=== PATIENT | male | born 1970 | race Caucasian/White ===

== ENCOUNTER 2016-09-09 14:40 | Observation (INO) | payer OTHER ==
[~2016-09-09] VITALS: Ht 182.9 cm; Wt 125.0 kg
--- NOTE | 2016-09-09 16:42 | ED NURSING NOTES ---
Clinical Report - Nurses [facility] [address] [place] [address] 09/09/2016 14:41 Patient: POONAM MARTINEZ TRIAGE Triage time 1451 PM. Acuity: LEVEL 2. Chief Complaint: ABDOMINAL PAIN, NAUSEA, VOMITING and DIARRHEA. Alert. No acute distress. SEPSIS SCREEN: Sepsis Screen. Infection suspected/documented. Temperature greater than 38.3 degrees C (101 degrees F) and heart rate greater than 90. --15:09 Gosia Mims R.N. 14:54 09/09/16. BP: 168/88. HR: 123. RR: 18. O2 saturation: 96% on room air. Temp: 103.1 F (oral). Pain level now: 01/21. --15:09 Gosia Mims R.N. Weight: 120.2 kg stated. Height/Length: 72 inches Per Patient. BMI: 36. --14:55 Gosia Mims R.N. Medications None. --15:06 Gosia Mims R.N. Allergies No Known Drug Allergy. --15:06 Gosia Mims R.N. Medication/allergy information source: the patient. --15:09 Gosia Mims R.N. History Arrived by private vehicle. Historian: patient. Accompanied by family. Primary physician (Dr. Carolina). ( Pt states that on morning at 4 am pain (abdominal) woke him up and vomiting and diarrhea has been constant. Today has vomited approximately 12 times, and diarrhea about once every hour. Abdominal pain states to be "all over" admits to having fevers and chills, vomiting and diarrhea all day. Denies any SOB or chest pain. Pt does state that his stools are "black like"). Onset. (2 days ago). He has had fever, nausea, vomiting, diarrhea and abdominal pain. No constipation. 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 Treatment TIP CEMENTER: Took aspirin. PAST MEDICAL HX: Immunizations: up-to-date. FALL RISK ASSESSMENT: Fall risk assessment completed. No fall risk identified. NUTRITIONAL RISK ASSESSMENT: The nutritional risk assessment revealed no deficiencies. FUNCTIONAL ASSESSMENT: Functional assessment: no impairments noted. LEARNING NEEDS ASSESSMENT: The learning needs assessment revealed no barriers. SKIN INTEGRITY ASSESSMENT: Skin integrity risk assessment completed. No skin integrity risk identified. --15:09 Gosia Mims R.N. PROBLEMS: Soft Tissue Foreign Body. --15:06 Gosia Mims R.N. ADDITIONAL SURGERIES: Tonsillectomy. Vasectomy. --15:06 Gosia Mims R.N. Interventions ID band on patient. --15:09 Gosia Mims R.N. PHYSICAL ASSESSMENT Ambulatory to room. GENERAL / NEURO / PSYCH: Alert. Oriented X 4. Appears in pain. HEENT: Mucous membranes are pink. RESPIRATORY: Respirations not labored. Breath sounds within normal limits. CVS: Capillary refill less than 2 seconds. GI / : The patient has had nausea and diarrhea. Abdomen soft and nontender. Abdominal tenderness. Rebound tenderness. Guarding present. Hyperactive bowel sounds in all quadrants. Bowel sounds within normal limits. SKIN: Skin is warm and dry. Skin is diaphoretic. --15:27 Gosia Mims R.N. NURSING PROGRESS NOTES 15:12 09/09/2016 Site #1 started via IV in the right antecubital space with an 20g angiocath, with aseptic technique and good blood return; one attempt. Blood drawn: rainbow set and cultures x1. Labeled in the presence of the patient and sent to the lab. Saline lock flushed with 10 mL saline. --15:22 Jomar Schaefer R.N. 15:09/09/2016 Started bag #1 1000 mL IV Fluids IV NS (Saline); at 1000 mL/hr over 1 hour(s) via site #1 via IV pump. Allergies verified and confirmed 5 rights. IV patency established. IV site checked: no pain, redness, or swelling. IV flushed thoroughly pre- and post-medication administration. --15:22 Jomar Schaefer R.N. 15:22 09/09/2016 Zofran (Ondansetron HCl) IVP 4 mg given over 1 minute(s) via site #1. Allergies verified and confirmed 5 rights. IV patency established. IV site checked: no pain, redness, or swelling. IV flushed thoroughly pre- and post-medication administration. IVP given by RN. --15:22 Jomar Schaefer R.N. 15:22 09/09/2016 PROTONIX (Pantoprazole Sodium) IVP 40 mg given over 1 minute(s) via site #1. Allergies verified and confirmed 5 rights. IV patency established. IV site checked: no pain, redness, or swelling. IV flushed thoroughly pre- and post-medication administration. IVP given by RN. --15:22 Jomar Schaefer R.N. The initial plan of care for this patient has been created This plan of care was discussed with the patient and family. Monitoring of patient in place. Patient ID band checked for patient name, birthdate and medical record number: patient confirmed. Blood samples drawn from the left antecubital space IV site by nurse per protocol ; labeled in presence of the patient and sent to lab: rainbow set. Patient gowned. Warming measures: blanket applied. Reassurance given. Two patient identifiers checked. Call light placed in reach. Side rails up. Bed placed in lowest position. Brakes of bed on. Care transferred. --15:28 Gosia Mims R.N. Care transferred and report given (Britton Hadley). --15:29 Gosia Mims R.N. 15:42 09/09/2016 Started 2 gm of Ceftriaxone IVPB; at 150 mL/hr over 30 minute(s) via site #1 via IV pump. Allergies verified and confirmed 5 rights. IV patency established. IV site checked: no pain, redness, or swelling. IV flushed thoroughly pre- and post-medication administration. --15:42 Jomar Schaefer R.N. 15:46 09/09/16. BP: 158/89. HR: 110. RR: 17. O2 saturation: 94%. Pain level now 4/10. --15:46 Jomar Schaefer R.N. 15:58 09/09/16. ( h&p given to pt to fill out.). --15:58 Jayne Purdy 16:33 09/09/2016 Ceftriaxone IVPB Discontinued: bag #1 completed. Total amount infused: 50 mL. IV patency established. IV site checked: no pain, redness, or swelling. IV flushed thoroughly. --16:33 Jomar Schaefer R.N. 16:33 09/09/2016 IV Fluids IV NS Discontinued: bag #2 completed. Total amount infused: 1000 mL. IV patency established. IV site checked: no pain, redness, or swelling. IV flushed thoroughly. --16:33 Jomar Schaefer R.N. 16:45 09/09/2016 Dilaudid (HYDROmorphone HCl PF) IVP 0.5 mg given over 1 minute(s) via site #1. Sedative warning given to the patient. IV patency established. IV site checked: no pain, redness, or swelling. IV flushed thoroughly pre- and post-medication administration. IVP given by RN. --16:45 Jomar Schaefer R.N. LEONOR COMA SCORE: Leonor Coma Scale: 15- eyes open spontaneously (4); best verbal response- oriented x 4 (5); best motor response- obeys commands (6). --17:09 Jomar Schaefer R.N. 17:06 09/09/16. BP: 145/76. HR: 105. RR: 15. O2 saturation: 96% on nasal cannula at 2 liters/minute. RN notified. Pain level now 5/10. --17:09 Jomar Schaefer R.N. ( His abdominal pain is better after the pain meds. Pt was placed on 2 liters nc and uses a Cpap at home.). --17:12 Jomar Schaefer R.N. DISPOSITION / DISCHARGE ( Report given to Elise PADILLA. Pt is going to room 210B.). --17:28 Jomar Schaefer R.N. Departure time: 17:40. Condition at departure: improved. ( Pt has improved.). Admitted to Acute Care (17:40). ( Facility tech was called for transport. Pt was placed on 2 liters nc for transport. \\). LEONOR COMA SCORE: Leonor Coma Scale: 15- eyes open spontaneously (4); best verbal response- oriented x 4 (5); best motor response- obeys commands (6). --17:40 Jomar Schaefer R.N. Locked/Released at 09/09/2016 17:41 by Jomar Schaefer R.N.
--- NOTE | 2016-09-09 16:42 | ED CLINICAL REPORT ---
Clinical Report - Physicians/Mid Levels [facility] [address] [place] [address] 09/09/2016 14:41 Patient: POONAM MARTINEZ Time Seen: 14:56. Arrived- By private vehicle. Historian- patient. HISTORY OF PRESENT ILLNESS Chief Complaint: VOMITING and DIARRHEA. This started about 2 days ago and is still present. It was gradual in onset and has been waxing/waning. No recent travel. He has had nausea, diarrhea and moderate, burning, intermittent abdominal pain. The pain is described as generalized. He has had vomiting (may have been bilious). The vomiting has occurred numerous times. No frankly bloody emesis. No black stools, bloody stools, constipation, flank pain or history of possible bad food exposure. No known contact with a sick individual. Has not recently been camping or on antibiotics. The illness is described as moderate. (States he has had "dark stools"). Similar symptoms previously: Recent medical care: Not recently seen/assessed. REVIEW OF SYSTEMS The patient has had fever and muscle aches. He has had mild difficulty with urination (mild dysuria), with burning during urination. No urgency or frequency of urination. No dark urine, headache, dizziness, sore throat or cough. No chest pain, difficulty breathing, excessive urination, skin rash or jaundice. No back pain, fainting episodes or blurred vision. All systems otherwise negative, except as recorded above. PAST HISTORY See nurses notes. PCP: Dr Love. Hiatal hernia. Surgeries: Tonsillectomy. Medications: None. Allergies: No Known Drug Allergy. SOCIAL HISTORY Never smoker. Occasional alcohol use. No drug use. Is a local resident. ADDITIONAL NOTES The nursing notes have been reviewed. PHYSICAL EXAM Vital Signs: 09/09/2016 14:54 BP: 168/88. HR: 123. RR: 18. O2 saturation: 96%. Temp: 103.1 F. Pain level now: 9/10. Appearance: Alert. Oriented X3. Patient in mild distress. Eyes: Pupils equal, round and reactive to light. Eyes normal inspection. No pale conjunctivae or scleral icterus. ENT: Pharynx normal. No pharyngeal erythema or tonsillar exudate. The mucous membranes are not dry. Neck: Normal inspection. Neck supple. CVS: Tachycardia. Heart sounds normal. Pulses normal. Respiratory: No respiratory distress. Breath sounds normal. Abdomen: Soft. Mild tenderness diffusely and in the upper abdomen. No mass. No rebound tenderness, distention or guarding. Back: Normal inspection. Skin: Skin warm and dry. Normal skin color. Normal skin turgor. Extremities: Extremities exhibit normal ROM. No lower extremity edema. Neuro: Oriented X 3. No motor deficit. No sensory deficit. LABS, X-RAYS, AND EKG Laboratory Tests: UA-Culture if indicated: (ED: 09/09/2016 16:40) ( [facility] 09/09/2016 18:42) Final results Test Result Flag Units (Reference) URINE COLOR YELLOW URINE APPEARANCE CLEAR URINE GLUCOSE NEGATIVE (NEGATIVE) URINE BILIRUBIN NEGATIVE (NEGATIVE) URINE KETONE NEGATIVE (NEGATIVE) URINE SPECIFIC GRAVITY <= 1.005 L (1.010-1.030) URINE PH 5.0 (5.0-8.0) URINE PROTEIN NEGATIVE (NEGATIVE) URINE UROBILINOGEN 0.2 EU/dL (0.2-1.0) URINE NITRITE NEGATIVE (NEGATIVE) URINE BLOOD NEGATIVE (NEGATIVE) URINE LEUK ESTERASE NEGATIVE (NEGATIVE) URINE RBC NONE SEEN rbc/hpf (0-1) URINE WBC NONE SEEN wbc/hpf (0-1) URINE EPITHELIAL CELLS NONE SEEN EPI/hpf (0-5) URINE BACTERIA NONE SEEN (NONE SEEN) URINE COMMENT CULT NOT INDICATED URINE CULTURES ARE SET-UP BASED ON THE FOLLOWING CRITERIA:POSITIVE NITRITEPOSITIVE LEUKOCYTE ESTERASEGREATER THAN 10 WHITE BLOOD CELLSMODERATE (2+) OR GREATER BACTERIA CBC w Diff: (ED: 09/09/2016 15:00) ( [facility] 09/09/2016 19:35) Final results Test Result Flag Units (Reference) WHITE BLOOD COUNT 17.4 H K/uL (4.5-11.5) RED BLOOD COUNT 4.93 M/uL (4.50-5.90) HEMOGLOBIN 14.8 gm/dL (13.5-17.5) HEMATOCRIT 43.4 % (41.0-53.0) MEAN CELL VOLUME 88 fL (80-100) MEAN CORPUSCULAR HGB 30 pg (26-34) MEAN CORPUSCULAR HGB CONC 34 g/dL (31-37) RED CELL DISTRIBUTION WIDTH 13.2 % (11.6-14.8) PLATELET COUNT 311 K/uL (150-400) POLY % 67 % (50-75) BAND % 28 H % (0-8) LYMPH 4 L % (25-40) MONO 1 L % (3-14) EOSINOPHIL % 0 % (0-4) BASOPHIL % 0 % (0-2) METAMYELOCYTE % 0 % (0-1) MYELOCYTE 0 % (0-1) OTHER CELL TYPE 0 RBC MORPHOLOGY RBCs NORMAL~~PLTS ADQ PT with INR: (ED: 09/09/2016 15:00) ( [facility] 09/09/2016 15:31) Final results Test Result Flag Units (Reference) INR 1.0 (0.8-1.2) Low Intensity Therapy: INR 1.5-2.0 PT range 18.5-23.1Mod.Intensity Therapy: INR 2.0-3.0 PT range 23.1-31.5High Intensity Therapy: INR 2.5-3.5 PT range 27.4-35.5High Intensity Therapy 2: INR 3.0-4.0 PT range 31.5-39.3 [id number]: (ED: 09/09/2016 15:50) ( [facility] 09/09/2016 18:08) Final results Test Result Flag Units (Reference) CALCULATED A1C 5.9 % (4.5-6.2) The [place] [employer] recommends that aprimary goal of therapy should be a HbA1c of <7% and thatphysicians should reevaluate the treatment regimen inpatients with HbA1c values consistently >8%. ESTIMATED AVERAGE GLUCOSE 123 mg/dL Urine Drug Screen: (ED: 09/09/2016 16:40) ( [facility] 09/09/2016 18:04) Final results Test Result Flag Units (Reference) AMPHETAMINE/METHAMPHETAMINE NEGATIVE (NEGATIVE) BARBITURATE NEGATIVE (NEGATIVE) BENZODIAZEPINE NEGATIVE (NEGATIVE) CANNABINOID NEGATIVE (NEGATIVE) COCAINE NEGATIVE (NEGATIVE) ECSTASY NEGATIVE (NEGATIVE) METHADONE NEGATIVE (NEGATIVE) OPIATE POSITIVE H (NEGATIVE) The urine drug screen is a qualitative screening test fordrug overdose and abuse. All screen results should beconsidered as presumptive.Drugs screened for are as follows:BenzodiazepinesCocaineAmphetamines/MetamphetaminesTHC (Tetrahydrocannabinol)OpiatesBarbituratesEcstasyMethadonePositive results are unconfirmed. For confirmation, notifythe lab for the specimen to be sent to the reference lab.All confirmations must be performed by a differentmethodology.The ingestion of natural herbal and plant productscontaining Ephedra/Ephedra metabolites can produce in urineone or more substances capable of cross reacting withamphetamine/methamphetamine immunoassays. These testsprovide a preliminary result only. A more specificalternative chemical method must be used to obtain aconfirmed analytical result. BNP: (ED: 09/09/2016 15:00) ( [facility] 09/09/2016 15:57) Final results Test Result Flag Units (Reference) B-TYPE NATRIURETIC PEPTIDE < 5.0 L pg/ml (5-100) Lactate, Serum: (ED: 09/09/2016 15:00) ( [facility] 09/09/2016 15:53) Final results Test Result Flag Units (Reference) LACTIC ACID 1.8 mmol/L (0.4-2.0) Lipase: (ED: 09/09/2016 15:00) ( [facility] 09/09/2016 15:52) Final results Test Result Flag Units (Reference) LIPASE 189 U/L (73-393) AMYLASE 62 U/L (25-115) CHEM 13 PANEL: (ED: 09/09/2016 15:00) ( [facility] 09/09/2016 15:53) Final results Test Result Flag Units (Reference) GLUCOSE 126 H mg/dL (70-110) BUN 19 H mg/dL (7-18) CREATININE 1.4 H mg/dL (0.6-1.3) Estimated GFR 58.51 mL/min Estimated GFR- >60 mL/min Note: Persistent reduction over 3 months in eGFR<60 mL/min/1.73 m2 defines CKD. Patients with eGFR values>=60 mL/min/1.73 m2 may also have CKD if evidence ofpersistent proteinuria. Additional information may be foundat www.kidney.org. SODIUM 138 mmol/L (136-145) POTASSIUM 3.3 L mmol/L (3.5-5.1) CHLORIDE 100 mmol/L (98-107) CARBON DIOXIDE 24 mmol/L (21-32) CALCIUM 8.2 L mg/dL (8.5-10.1) TOTAL PROTEIN 7.9 g/dL (6.4-8.2) ALBUMIN 3.8 g/dL (3.3-5.0) BILIRUBIN, TOTAL 0.5 mg/dL (0.0-1.0) ALKALINE PHOSPHATASE 83 U/L (46-116) AST (SGOT) 57 H U/L (15-37) ALT (SGPT) 121 H U/L (12-78) MAGNESIUM 1.8 mg/dL (1.8-2.4) CPK 126 U/L (24-260) TROPONIN I <0.05 L ng/mL (0.00-1.5) TROPONIN REFERENCE RANGE:<0.1 NEGATIVE0.1-1.5 INDETERMINANT>1.5 POSITIVE . Microbiology: Blood culture x2 and stool culture ordered. Pulse Oximetry: 09/09/2016 14:54 O2 saturation: 96%. (FIO2 - room air). Interpretation: normal. PROGRESS AND PROCEDURES Course of Care: Normal Saline 2 liters IVPB given. Zofran 4 mg IVP given. Protonix 40 mg IVP given. Ceftriaxone 2 gm - after blood cultures IVP given. Dilaudid 0.5 mg IVP given. SIRS Criteria: +WBC, +HR, + temp; suspect GI gastroenteritis, lactate 1.8; ST. CROIX 2 score (with estimated ABG numbers): 9; qSOFA score: 0. Discussed case with health care provider (Lori). Refers case to other health care provider. Discussed case with hospitalist, (Kiana call placed 16:29 call returned 16:36). Reviewed test results. Agreed upon treatment plan and decision to admit. Health care provider will see patient in ED. Patient/family counseled. Old ED records reviewed. Disposition: Observation in Acute Care. Condition: stable and improved. CLINICAL IMPRESSION Intractable vomiting with nausea and dehydration. Diarrhea. Acute generalized abdominal pain of undetermined cause. Abnormal liver function test. Hypokalemia. INSTRUCTIONS Follow-up: Screening today revealed the patient's blood pressure to be in the hypertensive range. The patient should follow up with a primary care provider for blood pressure management. The patient was admitted and blood pressure will be managed during the admission. (Electronically signed by Ish Hidalgo DO 09/09/2016 20:43)
--- NOTE | 2016-09-09 16:42 | ED ORDER SUMMARY ---
..... Patient: POONAM MARTINEZ OrderSheet [facility] VisitID: [id number] [place] [address] 46y, M Registration Date/Time: 09/09/2016 ORDER SHEET Weight: 120.2 kg (stated) Allergies: No Known Drug Allergy GENERAL ORDERS: UA-Culture if indicated [facility] (15:00 [facility] (Ack 15:01 TBergley) (15:25 TLewis R.N.) Amylase Urgent (15:09/09/2016 [facility] (Ack 15:01 TBergley) (15:10 EHassan R.N.) Lipase Urgent (15:09/09/2016 [facility]) (Ack 15:01 TBergley) (15:10 EHassan R.N.) PT with INR Urgent (15:09/09/2016 PHwason ) (Ack 15:01 TBergley) (15:10 EHassan R.N.) Cardiac Panel Stat (15:00 09/09/2016 [facility] (Ack 15:01 TBergley) (15:10 EHassan R.N.) BNP Urgent (15:09/09/2016 PHwachinson DO) (Ack 15:01 TBergley) (15:10 EHassan R.N.) Urine Drug Screen Urgent (15:09/09/2016 [facility]) (Ack 15:01 TBergley) (15:25 TLewis R.N.) Lactate, Serum Urgent (15:09/09/2016 PHwachinson DO) (Ack 15:01 TBergley) (15:10 EHassan R.N.) NPO (15:09/09/2016 PHwachinson DO) (Ack 15:01 TBergley) (15:09 TBergley) Blood Culture (No) (N/A) Urgent (15:08 09/09/2016 PHutchinson DO) (Ack 15:08 TBergley) (15:10 EHassan R.N.) CT Abd/Pel w Cont (No) (N/A) Urgent (15:15 09/09/2016 [facility]) (15:25 TLewis R.N.) Call (Place call to): (Dr Bruno) (16:30 09/09/2016 [facility]) (16:35 TBergley) Culture, Stool Urgent (16:40 09/09/2016 [facility]) (Ack 16:40 TBergley) (16:43 TLewis R.N.) MEDICATION ORDERS: IV FLUIDS: IV NS : initial bolus 1000 mL (1000 mL/hr), then 1000 mL/hr for X1 (NOW) (14:59 09/09/2016 [facility]) (15:22 TLewis R.N.) Zofran IV 4 mg (NOW) (14:59 09/09/2016 [facility]) (15:22 TLewis R.N.) Protonix IVP 40mg 40 mg (Mix in NS 10ml over 2min) (15:00 09/09/2016 [facility]) (15:22 TLewis R.N.) Ceftriaxone IV 2 gm/50mL (after blood cultures and urine obtained) (15:24 09/09/2016 [facility]) (15:42 TLewis R.N.) Dilaudid IV 0.5 mg (HIGH ALERT MEDICATION, NOW) (16:43 09/09/2016 [facility]) (16:45 TLewis R.N.) ORDER SHEET NOTES: [Electronically signed by Jomar Schaefer R.N. (17:41 09/09/2016)] [Electronically signed by Ish Hidalgo DO (20:43 09/09/2016)] [Electronically locked/signed by Jomar Schaefer R.N. (17:41 09/09/2016)]
--- NOTE | 2016-09-09 16:42 | ED ORDER SUMMARY ---
..... Patient: POONAM MARTINEZ OrderSheet [facility] VisitID: [id number] [place] [address] 46y, M Registration Date/Time: 09/09/2016 ORDER SHEET Weight: 120.2 kg (stated) Allergies: No Known Drug Allergy GENERAL ORDERS: UA-Culture if indicated Urgent (15:00 [facility]/09/2016 [facility] (Ack 15:01 TBergley) (15:25 TLewis R.N.) Amylase Urgent (15:09/09/2016 [facility]) (Ack 15:01 TBergley) (15:10 EHassan R.N.) Lipase Urgent (15:09/09/2016 [facility]) (Ack 15:01 TBergley) (15:10 EHassan R.N.) PT with INR Urgent (15:09/09/2016 PHnyson ) (Ack 15:01 TBergley) (15:10 EHassan R.N.) Cardiac Panel Stat (15:00 09/09/2016 [facility] (Ack 15:01 TBergley) (15:10 EHassan R.N.) BNP Urgent (15:09/09/2016 PHnychinson DO) (Ack 15:01 TBergley) (15:10 EHassan R.N.) Urine Drug Screen Urgent (15:09/09/2016 [facility]) (Ack 15:01 TBergley) (15:25 TLewis R.N.) Lactate, Serum Urgent (15:09/09/2016 PHnychinson DO) (Ack 15:01 TBergley) (15:10 EHassan R.N.) NPO (15:09/09/2016 PHnychinson DO) (Ack 15:01 TBergley) (15:09 TBergley) Blood Culture (No) (N/A) Urgent (15:08 09/09/2016 PHutchinson DO) (Ack 15:08 TBergley) (15:10 EHassan R.N.) CT Abd/Pel w Cont (No) (N/A) Urgent (15:15 09/09/2016 [facility]) (15:25 TLewis R.N.) Call (Place call to): (Dr Bruno) (16:30 09/09/2016 [facility]) (16:35 TBergley) Culture, Stool Urgent (16:40 09/09/2016 [facility]) (Ack 16:40 TBergley) (16:43 TLewis R.N.) MEDICATION ORDERS: IV FLUIDS: IV NS : initial bolus 1000 mL (1000 mL/hr), then 1000 mL/hr for X1 (NOW) (14:59 09/09/2016 [facility]) (15:22 TLewis R.N.) Zofran IV 4 mg (NOW) (14:59 09/09/2016 [facility]) (15:22 TLewis R.N.) Protonix IVP 40mg 40 mg (Mix in NS 10ml over 2min) (15:00 09/09/2016 [facility]) (15:22 TLewis R.N.) Ceftriaxone IV 2 gm/50mL (after blood cultures and urine obtained) (15:24 09/09/2016 [facility]) (15:42 TLewis R.N.) Dilaudid IV 0.5 mg (HIGH ALERT MEDICATION, NOW) (16:43 09/09/2016 [facility]) (16:45 TLewis R.N.) ORDER SHEET NOTES: [Electronically signed by Jomar Schaefer R.N. (17:41 09/09/2016)] [Electronically signed by Ish Hidalgo DO (20:43 09/09/2016)] [Electronically locked/signed by Jomar Schaefer R.N. (17:41 09/09/2016)]
--- NOTE | 2016-09-09 16:57 | DIAGNOSTIC IMAGING REPORT ---
PROCEDURE: CT ABD/PELVIS WITH CONTRAST INDICATION: Abdominal pain. Nausea vomiting. Diarrhea. Elevated white blood count (17,400). TECHNIQUE: 145 ml of Isovue 300 were injected intravenously and axial images were obtained of the entire abdomen and pelvis with sagittal and coronal reformations. COMPARISON: Compared CT abdomen pelvis on 06/09/2014. FINDINGS: ABDOMEN: Moderate increased fluid throughout the small bowel and colon. Appendix is normal. Mild pattern negative marked fatty infiltration of the liver. Spleen, pancreas, kidneys, and aorta are normal. There is dystrophic calcification of the right adrenal gland (stable). Mild to moderate degenerative changes of the lumbar spine. PELVIS: Pelvic structures are normal. No evidence of free fluid. IMPRESSION: 1. Moderate increased fluid throughout the small bowel and colon compatible with enterocolitis. 2. Mild hepatomegaly with marked fatty infiltration of the liver. 3. Otherwise negative CT abdomen and pelvis. 4. Findings discussed with Dr. Hidalgo. All CT scans at this facility use dose modulation, iterative reconstruction, and/or weight-based dosing when appropriate to reduce radiation dose to as low as reasonably achievable.
--- NOTE | 2016-09-09 17:02 | Progress Note ---
Subjective General Admission History and Physical Examination Patient Name: Keo Phelan Admission Date: September 09, 2016 Primary Care Provider: Xu Love M.D. Attending Physician: Rebel Bruno M.D. Admitting Physician: Rebel Bruno M.D. Code Status: FULL CODE Room: 210-B Patient status: Observation SUBJECTIVE Historian: Patient Reliability: Good Chief Complaint: Nausea, vomiting, abdominal pain, and diarrhea History of Present Illness: The patient is a 46-year-old white male with a significant past medical history hypertension and obesity who presented to [facility] emergency department on the day of admission secondary to complaints of nausea, vomiting, abdominal pain and diarrhea. The symptoms have been present over the 2 days prior to admission. [facility] ER evaluation was consistent with probable gastroenteritis with intractable nausea and vomiting, hypokalemia, dehydration, hyperglycemia, and hypertension. Secondary to the above, the patient was admitted by Rebel Bruno M.D. for further evaluation and treatment. The history of present was began 2 days prior to admission when the patient developed nausea with recurrent emesis. There was no coffee-ground material or blood noted in emesis. Patient's states he vomited approximately 12 times today. Possibly bilious material. The patient also had diarrhea which not contain blood or that have been dark.. The patient's symptoms were associated with temperature elevation to 103F and chills. The patient's abdominal pain has been diffuse. Secondary to intractable nausea and vomiting, abdominal pain, fever or chills and generalized malaise the patient presented to [facility] emergency department for further evaluation and treatment. [facility] ER evaluation was consistent with gastroenteritis with associated intractable nausea and vomiting, diarrhea, dehydration, hypokalemia. Secondary to the above the patient was admitted for further evaluation and treatment. PAST MEDICAL HISTORY Illnesses: 1. Hypertension 2. Obesity Allergies: 1. No Known Drug Allergies Medications: 1. High blood pressure medication-type unknown Surgery: 1. Tonsillectomy 2. Vasectomy Injuries: 1. No significant Hospitalizations: 1. None FAMILY HISTORY Parents: 1. Father, Glen, living, 69, hypertension, diabetes mellitus, 2. Mother, Jennifer, living, 67, healthy Siblings: 1. Male, Guicho, living, 49, hypertension, diabetes mellitus, heart disease-type unknown Children: 1. Female, Cindy, living, 17, healthy 2. Female, Melissa, living, 14, healthy Other significant family history: None SOCIAL HISTORY 1. Marital Status: 2. Synagogue: [employer]-Orthodoxy 3. Education: High school and vocational education 4. 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 Tobacco: None 2. Drugs: None 3. Alcohol: One ounce per week 4. Caffeine: One Soft Drink per Day HEALTH SUPERVISION Item/Test 1. Colonoscopy: 2016 IMMUNIZATIONS: 1. Pneumococcal: No previous 2. Influenza: No previous 3. Tetanus: 2013 ADVANCED DIRECTIVES: 1. Living well: Yes 2. POLST: No 3. Code Status: FULL CODE 4. Durable Power Assistive Technology Specialist Health care: Yes 5. Donor card: Yes REVIEW OF SYSTEMS Remarkable for those things stated in the history of present illness and past medical history. Seventeen point review of system completed with the following notable findings: None Physical Exam Vital Signs / I&Os Blood pressure: 168/88 mmHg Heart rate: 123/minute Respiratory rate: 18/minute Temperature: 103.1 Fahrenheit orally Pulse oximetry: 96% room air General Appearance Alert, Oriented X3, Cooperative, No acute distress HEENT Atraumatic, PERRLA, EOMI, Moist mucous membranes Lungs Clear to auscultation, Normal air movement Neck Supple, No JVD, 2+ carotid pulse wo bruit Cardiovascular Regular rate and rhythm, Normal S1 and S2, No murmurs, gallops, rubs Abdomen Hypoactive BS, diffuse mild tenderness Extremities No cyanosis, No clubbing, No edema, Normal pulses Neurological Cranial nerves intact, Strength 5/5 x4 ext's, No lateralizing signs Psych/Mental Status Mental status normal, Mood normal LAB Results Laboratory Tests 09/09 09/09 09/09 09/09 1500 1500 1500 1500 Chemistry Plasma Sodium (136 - 145 mmol/L) 138 Plasma Potassium (3.5 - 5.1 mmol/L) 3.3 Plasma Chloride (98 - 107 mmol/L) 100 CO2 (Enzymatic) (21 - 32 mmol/L) 24 BUN (7 - 18 mg/dL) 19 Creatinine (0.6 - 1.3 mg/dL) 1.4 Est GFR ( Amer) (mL/min) >60 Est GFR (Non-Af Amer) (mL/min) 58.51 Glucose (70 - 110 mg/dL) 126 Lactic Acid (0.4 - 2.0 mmol/L) 1.8 Plasma Calcium (8.5 - 10.1 mg/dL) 8.2 Plasma Magnesium (1.8 - 2.4 mg/dL) 1.8 Total Bilirubin (0.0 - 1.0 mg/dL) 0.5 AST (15 - 37 U/L) 57 ALT (12 - 78 U/L) 121 Alkaline Phosphatase (46 - 116 U/L) 83 Creatine Kinase (24 - 260 U/L) 126 Troponin (0.00 - 1.5 ng/mL) <0.05 B-Natriuretic Peptide (5 - 100 pg/ml) < 5.0 Total Protein (6.4 - 8.2 g/dL) 7.9 Albumin (3.3 - 5.0 g/dL) 3.8 Amylase (25 - 115 U/L) 62 Lipase (73 - 393 U/L) 189 Coagulation INR (0.8 - 1.2) 1.0 Hematology WBC (4.5 - 11.5 K/uL) 17.4 RBC (4.50 - 5.90 M/uL) 4.93 Hgb (13.5 - 17.5 gm/dL) 14.8 Hct (41.0 - 53.0 %) 43.4 MCV (80 - 100 fL) 88 MCH (26 - 34 pg) 30 RDW (11.6 - 14.8 %) 13.2 Neut % (Auto) (50 - 75 %) Pending Lymph % (Auto) (25 - 40 %) Pending Sierra % (Auto) (3 - 14 %) Pending Band Neutrophils % (0 - 8 %) Pending Plt Count, EDTA (150 - 400 K/uL) 311 PUBS MCHC (31 - 37 g/dL) 34 Microbiology Date/Time Procedure - Status Source Growth 09/09 1640 Escherichia coli Shiga Toxins EIA - ORD STOOL 09/09 1640 Campylobacter Culture - ORD STOOL 09/09 1640 Salmonella/Shigella Culture - ORD STOOL 09/09 1520 Blood Culture - RECD BLOOD 09/09 1500 Blood Culture - RECD BLOOD Imaging Abdomen/Pelvis CT Scan IMPRESSION: 1. Moderate increased fluid throughout the small bowel and colon compatible with enterocolitis. 2. Mild hepatomegaly with marked fatty infiltration of the liver. 3. Otherwise negative CT abdomen and pelvis. 4. Findings discussed with Dr. Hidalgo. Dictated by: STELLA MUSA MD D: KEVIN;09/09/[address] scan independently reviewed at time of admission. Assessment and Plan Problem List 1. Gastroenteritis Status Acute Onset Date Unknown Plan -Patient presents with findings suggestive of viral gastroenteritis -Patient with intractable nausea and vomiting -Admitted with IV fluid therapy, antiemetics -Check stool for fecal leukocyte, culture and sensitivity -Check procalcitonin -Monitor 2. Hypokalemia Status Acute Onset Date Unknown Plan -Patient presents with findings of mild hypokalemia -Potassium 3.3 -IV supplementation, KCl 40 meq IV -Monitor 3. Dehydration Status Acute Onset Date Unknown Plan -Patient shows findings of mild dehydration -Elevation of BUN/creatinine -IV fluid therapy -Monitor 4. Hyperglycemia Status Acute Onset Date Unknown Plan -Patient with mild hyperglycemia -Monitor -Check hemoglobin A1c -Insulin sliding scale as necessary 5. Hypertension Status Chronic Onset Date Unknown Plan -Patient with history of hypertension -Blood pressure mildly elevated on admission, BP 168/88 mmHg -Patient unaware of current medical regimen -Contact [facility] for medical regimen -Low-salt diet when taking well orally -Monitor 6. Elevated liver function tests Status Acute Onset Date Unknown Plan -Patient with mild elevation of LFTs -Recheck in a.m. -Further evaluation based on follow-up studies Current status: Fair, unstable Anticipated discharge date: Anticipated discharge in 2 days Anticipated discharge placement: Home Patient care time: Time spent in chart review, patient interview, physical exam, CPOE, and care documentation: 70 minutes Visit to patient today: 1 Complexity of care: High Initial patient evaluation: Emergency department DVT prophylaxis: Lovenox 40 mg subcutaneous daily GI prophylaxis: Protonix 40 mg IV daily E&M Codes Admission: Obsv-Comp/High/[id number]
--- NOTE | 2016-09-09 17:02 | Progress Note ---
Subjective General Admission History and Physical Examination Patient Name: Keo Phelan Admission Date: September 09, 2016 Primary Care Provider: Xu Love M.D. Attending Physician: Rebel Bruno M.D. Admitting Physician: Rebel Bruno M.D. Code Status: FULL CODE Room: 210-B Patient status: Observation SUBJECTIVE Historian: Patient Reliability: Good Chief Complaint: Nausea, vomiting, abdominal pain, and diarrhea History of Present Illness: The patient is a 46-year-old white male with a significant past medical history hypertension and obesity who presented to [facility] emergency department on the day of admission secondary to complaints of nausea, vomiting, abdominal pain and diarrhea. The symptoms have been present over the 2 days prior to admission. [facility] ER evaluation was consistent with probable gastroenteritis with intractable nausea and vomiting, hypokalemia, dehydration, hyperglycemia, and hypertension. Secondary to the above, the patient was admitted by Rebel Bruno M.D. for further evaluation and treatment. The history of present was began 2 days prior to admission when the patient developed nausea with recurrent emesis. There was no coffee-ground material or blood noted in emesis. Patient's states he vomited approximately 12 times today. Possibly bilious material. The patient also had diarrhea which not contain blood or that have been dark.. The patient's symptoms were associated with temperature elevation to 103F and chills. The patient's abdominal pain has been diffuse. Secondary to intractable nausea and vomiting, abdominal pain, fever or chills and generalized malaise the patient presented to [facility] emergency department for further evaluation and treatment. [facility] ER evaluation was consistent with gastroenteritis with associated intractable nausea and vomiting, diarrhea, dehydration, hypokalemia. Secondary to the above the patient was admitted for further evaluation and treatment. PAST MEDICAL HISTORY Illnesses: 1. Hypertension 2. Obesity Allergies: 1. No Known Drug Allergies Medications: 1. High blood pressure medication-type unknown Surgery: 1. Tonsillectomy 2. Vasectomy Injuries: 1. No significant Hospitalizations: 1. None FAMILY HISTORY Parents: 1. Father, Glen, living, 69, hypertension, diabetes mellitus, 2. Mother, Jennifer, living, 67, healthy Siblings: 1. Male, Guicho, living, 49, hypertension, diabetes mellitus, heart disease-type unknown Children: 1. Female, Cindy, living, 17, healthy 2. Female, Melissa, living, 14, healthy Other significant family history: None SOCIAL HISTORY 1. Marital Status: 2. Jainism: Confucianism-Mormonism 3. Education: High school and vocational education 4. 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 Tobacco: None 2. Drugs: None 3. Alcohol: One ounce per week 4. Caffeine: One Soft Drink per Day HEALTH SUPERVISION Item/Test 1. Colonoscopy: 2016 IMMUNIZATIONS: 1. Pneumococcal: No previous 2. Influenza: No previous 3. Tetanus: 2013 ADVANCED DIRECTIVES: 1. Living well: Yes 2. POLST: No 3. Code Status: FULL CODE 4. Durable Power Prefinish Operator Health care: Yes 5. Donor card: Yes REVIEW OF SYSTEMS Remarkable for those things stated in the history of present illness and past medical history. Seventeen point review of system completed with the following notable findings: None Physical Exam Vital Signs / I&Os Blood pressure: 168/88 mmHg Heart rate: 123/minute Respiratory rate: 18/minute Temperature: 103.1 Fahrenheit orally Pulse oximetry: 96% room air General Appearance Alert, Oriented X3, Cooperative, No acute distress HEENT Atraumatic, PERRLA, EOMI, Moist mucous membranes Lungs Clear to auscultation, Normal air movement Neck Supple, No JVD, 2+ carotid pulse wo bruit Cardiovascular Regular rate and rhythm, Normal S1 and S2, No murmurs, gallops, rubs Abdomen Hypoactive BS, diffuse mild tenderness Extremities No cyanosis, No clubbing, No edema, Normal pulses Neurological Cranial nerves intact, Strength 5/5 x4 ext's, No lateralizing signs Psych/Mental Status Mental status normal, Mood normal LAB Results Laboratory Tests 09/09 09/09 09/09 09/09 1500 1500 1500 1500 Chemistry Plasma Sodium (136 - 145 mmol/L) 138 Plasma Potassium (3.5 - 5.1 mmol/L) 3.3 Plasma Chloride (98 - 107 mmol/L) 100 CO2 (Enzymatic) (21 - 32 mmol/L) 24 BUN (7 - 18 mg/dL) 19 Creatinine (0.6 - 1.3 mg/dL) 1.4 Est GFR ( Amer) (mL/min) >60 Est GFR (Non-Af Amer) (mL/min) 58.51 Glucose (70 - 110 mg/dL) 126 Lactic Acid (0.4 - 2.0 mmol/L) 1.8 Plasma Calcium (8.5 - 10.1 mg/dL) 8.2 Plasma Magnesium (1.8 - 2.4 mg/dL) 1.8 Total Bilirubin (0.0 - 1.0 mg/dL) 0.5 AST (15 - 37 U/L) 57 ALT (12 - 78 U/L) 121 Alkaline Phosphatase (46 - 116 U/L) 83 Creatine Kinase (24 - 260 U/L) 126 Troponin (0.00 - 1.5 ng/mL) <0.05 B-Natriuretic Peptide (5 - 100 pg/ml) < 5.0 Total Protein (6.4 - 8.2 g/dL) 7.9 Albumin (3.3 - 5.0 g/dL) 3.8 Amylase (25 - 115 U/L) 62 Lipase (73 - 393 U/L) 189 Coagulation INR (0.8 - 1.2) 1.0 Hematology WBC (4.5 - 11.5 K/uL) 17.4 RBC (4.50 - 5.90 M/uL) 4.93 Hgb (13.5 - 17.5 gm/dL) 14.8 Hct (41.0 - 53.0 %) 43.4 MCV (80 - 100 fL) 88 MCH (26 - 34 pg) 30 RDW (11.6 - 14.8 %) 13.2 Neut % (Auto) (50 - 75 %) Pending Lymph % (Auto) (25 - 40 %) Pending Maverick % (Auto) (3 - 14 %) Pending Band Neutrophils % (0 - 8 %) Pending Plt Count, EDTA (150 - 400 K/uL) 311 PUBS MCHC (31 - 37 g/dL) 34 Microbiology Date/Time Procedure - Status Source Growth 09/09 1640 Escherichia coli Shiga Toxins EIA - ORD STOOL 09/09 1640 Campylobacter Culture - ORD STOOL 09/09 1640 Salmonella/Shigella Culture - ORD STOOL 09/09 1520 Blood Culture - RECD BLOOD 09/09 1500 Blood Culture - RECD BLOOD Imaging Abdomen/Pelvis CT Scan IMPRESSION: 1. Moderate increased fluid throughout the small bowel and colon compatible with enterocolitis. 2. Mild hepatomegaly with marked fatty infiltration of the liver. 3. Otherwise negative CT abdomen and pelvis. 4. Findings discussed with Dr. Hidalgo. Dictated by: STELLA MUSA MD D: KEVIN;09/09/[address] scan independently reviewed at time of admission. Assessment and Plan Problem List 1. Gastroenteritis Status Acute Onset Date Unknown Plan -Patient presents with findings suggestive of viral gastroenteritis -Patient with intractable nausea and vomiting -Admitted with IV fluid therapy, antiemetics -Check stool for fecal leukocyte, culture and sensitivity -Check procalcitonin -Monitor 2. Hypokalemia Status Acute Onset Date Unknown Plan -Patient presents with findings of mild hypokalemia -Potassium 3.3 -IV supplementation, KCl 40 meq IV -Monitor 3. Dehydration Status Acute Onset Date Unknown Plan -Patient shows findings of mild dehydration -Elevation of BUN/creatinine -IV fluid therapy -Monitor 4. Hyperglycemia Status Acute Onset Date Unknown Plan -Patient with mild hyperglycemia -Monitor -Check hemoglobin A1c -Insulin sliding scale as necessary 5. Hypertension Status Chronic Onset Date Unknown Plan -Patient with history of hypertension -Blood pressure mildly elevated on admission, BP 168/88 mmHg -Patient unaware of current medical regimen -Contact [facility] for medical regimen -Low-salt diet when taking well orally -Monitor 6. Elevated liver function tests Status Acute Onset Date Unknown Plan -Patient with mild elevation of LFTs -Recheck in a.m. -Further evaluation based on follow-up studies Current status: Fair, unstable Anticipated discharge date: Anticipated discharge in 2 days Anticipated discharge placement: Home Patient care time: Time spent in chart review, patient interview, physical exam, CPOE, and care documentation: 70 minutes Visit to patient today: 1 Complexity of care: High Initial patient evaluation: Emergency department DVT prophylaxis: Lovenox 40 mg subcutaneous daily GI prophylaxis: Protonix 40 mg IV daily E&M Codes Admission: Obsv-Comp/High/[id number]
[2016-09-09 17:48] VITALS: BP 147/84
--- NOTE | 2016-09-09 20:43 | ED MAR SUMMARY ---
..... Medication Administration Record [facility] [address] [place] [address] Patient: POONAM MARTINEZ Visit ID: [id number] 46y, M Weight: 120.2 kg Height/Length: 72 in BMI: 36 ALLERGIES: No Known Drug Allergy Start 15:22 09/09/2016 Jomar Schaefer R.N., Stop 16:33 09/09/2016 Jomar Schaefer R.N. Medication Administered: IV NS (SALINE), Dose: IV Fluids over 1 hour(s), Rate: 1000 mL/hr, Dispensed: 1000 mL bag, Site: #1 right AC. Medication Ordered: IV NS : initial bolus 1000 mL (1000 mL/hr), then 1000 mL/hr for X1 (NOW). Given 15:09/09/2016 Jomar Schaefer R.N. Medication Administered: ZOFRAN [IVP] (ONDANSETRON HCL), Dose: 4 mg IVP over 1 minute(s), Site: #1 right AC. Medication Ordered: Zofran IV 4 mg (NOW). Given 15:09/09/2016 Jomar Schaefer R.N. Medication Administered: PROTONIX [IVP] (PANTOPRAZOLE SODIUM), Dose: 40 mg IVP over 1 minute(s), Site: #1 right AC. Medication Ordered: Protonix IVP 40mg 40 mg (Mix in NS 10ml over 2min). Start 15:42 09/09/2016 Jomar Schaefer R.N., Stop 16:33 09/09/2016 Jomar Schaefer R.N. Medication Administered: CEFTRIAXONE [IVPB], Dose: 2 gm IVPB over 30 minute(s), Rate: 150 mL/hr, Site: #1 right AC. Medication Ordered: Ceftriaxone IV 2 gm/50mL (after blood cultures and urine obtained). Given 16:45 09/09/2016 Jomar Schaefer R.N. Medication Administered: DILAUDID [IVP] (HYDROMORPHONE HCL PF), Dose: 0.5 mg IVP over 1 minute(s), Site: #1 right AC. Medication Ordered: Dilaudid IV 0.5 mg (HIGH ALERT MEDICATION, NOW).
--- NOTE | 2016-09-09 20:43 | ED DISCHARGE INSTRUCTIONS ---
Patient: POONAM MARTINEZ General Instructions [facility] VisitID: [id number] [place] [address] 46y, M Registration Date/Time: 09/09/2016 Intractable vomiting with nausea and dehydration. Diarrhea. Acute generalized abdominal pain of undetermined cause. Abnormal liver function test. Hypokalemia. INSTRUCTIONS Follow-up: Screening today revealed the patient's blood pressure to be in the hypertensive range. The patient should follow up with a primary care provider for blood pressure management. The patient was admitted and blood pressure will be managed during the admission. (Electronically signed by Ish Hidalgo DO 09/09/2016 20:43)
--- NOTE | 2016-09-09 20:43 | ED DISCHARGE INSTRUCTIONS ---
Patient: POONAM MARTINEZ General Instructions [facility] VisitID: [id number] [place] [address] 46y, M Registration Date/Time: 09/09/2016 Intractable vomiting with nausea and dehydration. Diarrhea. Acute generalized abdominal pain of undetermined cause. Abnormal liver function test. Hypokalemia. INSTRUCTIONS Follow-up: Screening today revealed the patient's blood pressure to be in the hypertensive range. The patient should follow up with a primary care provider for blood pressure management. The patient was admitted and blood pressure will be managed during the admission. (Electronically signed by Ish Hidalgo DO 09/09/2016 20:43)
--- NOTE | 2016-09-09 20:43 | ED MED RECONCILIATION SUMMARY ---
Patient: POONAM MARTINEZ Medication Reconciliation Report [facility] VisitID: [id number] [address] [place] [address] 46y, M Registration Date/Time: 09/09/2016 Weight: 120.2 kg Height/Length: 72 in. BMI: 36.0 ALLERGIES: No Known Drug Allergy The patient's Home Medications are listed below: NONE. The source(s) of the original Home Medication information: patient The following Medications were given to the patient in the Emergency Department: IV NS IV Fluids bolus 0, then 1000 mL/hr, administered: 09/09/2016 3:22:00 PM Zofran [IVP] IVP 4 mg, administered: 09/09/2016 3:22:00 PM PROTONIX [IVP] IVP 40 mg, administered: 09/09/2016 3:22:00 PM Ceftriaxone [IVPB] IVPB bolus 0, then 2 gm 150 mL/hr, administered: 09/09/2016 3:42:00 PM Dilaudid [IVP] IVP 0.5 mg, administered: 09/09/2016 4:45:00 PM The following Medications were prescribed to the patient: None.
--- NOTE | 2016-09-09 20:43 | ED MED RECONCILIATION SUMMARY ---
Patient: POONAM MARTINEZ Medication Reconciliation Report [facility] VisitID: [id number] [address] [place] [address] 46y, M Registration Date/Time: 09/09/2016 Weight: 120.2 kg Height/Length: 72 in. BMI: 36.0 ALLERGIES: No Known Drug Allergy The patient's Home Medications are listed below: NONE. The source(s) of the original Home Medication information: patient The following Medications were given to the patient in the Emergency Department: IV NS IV Fluids bolus 0, then 1000 mL/hr, administered: 09/09/2016 3:22:00 PM Zofran [IVP] IVP 4 mg, administered: 09/09/2016 3:22:00 PM PROTONIX [IVP] IVP 40 mg, administered: 09/09/2016 3:22:00 PM Ceftriaxone [IVPB] IVPB bolus 0, then 2 gm 150 mL/hr, administered: 09/09/2016 3:42:00 PM Dilaudid [IVP] IVP 0.5 mg, administered: 09/09/2016 4:45:00 PM The following Medications were prescribed to the patient: None.
--- NOTE | 2016-09-09 20:43 | ED MAR SUMMARY ---
..... Medication Administration Record [facility] [address] [place] [address] Patient: POONAM MARTINEZ Visit ID: [id number] 46y, M Weight: 120.2 kg Height/Length: 72 in BMI: 36 ALLERGIES: No Known Drug Allergy Start 15:22 09/09/2016 Jomar Schaefer R.N., Stop 16:33 09/09/2016 Jomar Schaefer R.N. Medication Administered: IV NS (SALINE), Dose: IV Fluids over 1 hour(s), Rate: 1000 mL/hr, Dispensed: 1000 mL bag, Site: #1 right AC. Medication Ordered: IV NS : initial bolus 1000 mL (1000 mL/hr), then 1000 mL/hr for X1 (NOW). Given 15:09/09/2016 Jomar Schaefer R.N. Medication Administered: ZOFRAN [IVP] (ONDANSETRON HCL), Dose: 4 mg IVP over 1 minute(s), Site: #1 right AC. Medication Ordered: Zofran IV 4 mg (NOW). Given 15:09/09/2016 Jomar Schaefer R.N. Medication Administered: PROTONIX [IVP] (PANTOPRAZOLE SODIUM), Dose: 40 mg IVP over 1 minute(s), Site: #1 right AC. Medication Ordered: Protonix IVP 40mg 40 mg (Mix in NS 10ml over 2min). Start 15:42 09/09/2016 Jomar Schaefer R.N., Stop 16:33 09/09/2016 Jomar Schaefer R.N. Medication Administered: CEFTRIAXONE [IVPB], Dose: 2 gm IVPB over 30 minute(s), Rate: 150 mL/hr, Site: #1 right AC. Medication Ordered: Ceftriaxone IV 2 gm/50mL (after blood cultures and urine obtained). Given 16:45 09/09/2016 Jomar Schaefer R.N. Medication Administered: DILAUDID [IVP] (HYDROMORPHONE HCL PF), Dose: 0.5 mg IVP over 1 minute(s), Site: #1 right AC. Medication Ordered: Dilaudid IV 0.5 mg (HIGH ALERT MEDICATION, NOW).
[2016-09-09 22:21] VITALS: BP 146/76
[2016-09-10 02:09] VITALS: BP 138/67
[2016-09-10 06:14] VITALS: BP 151/77
--- NOTE | 2016-09-10 07:14 | Progress Note ---
Subjective General Note Date: September 10, 2016 Admission Date: September 09, 2016 Hospital Day: 2 PCP: Dr. Love Status: Acute care Observation Advanced Directive: FULL CODE Room: 210 46-year-old white male with a significant past medical history hypertension and obesity who presented to [facility] emergency department on the day of admission secondary to complaints of nausea, vomiting, abdominal pain and diarrhea. The symptoms have been present over the 2 days prior to admission. [facility] ER evaluation was consistent with probable gastroenteritis with intractable nausea and vomiting, hypokalemia, dehydration, hyperglycemia, and hypertension. Secondary to the above, the patient was admitted by Rebel Bruno M.D. for further evaluation and treatment. Subjective: Patient seen at bedside. Patient reporting slight improvement. Patient has had no vomiting. Patient reports of diarrhea. Patient states that these not yet eating. This hoping to advance to a clear liquid diet. Patient has generalized abdominal pain. Pain has generalized abdominal pain. Patient needs Normalize condition Constitutional Weakness. Respiratory Denies: SOB w/exertion, Wheezing. Cardiovascular Denies: Light-headedness. Gastrointestinal Vomiting, Abdominal Pain, Diarrhea. Physical Exam Vital Signs / I&Os Vital Signs Date Time Temp Pulse Resp B/P Pulse O2 O2 Flow FiO2 Ox Delivery Rate 09/10 0614 98.6 88 16 151/77 98 Room Air 09/10 0209 100.4 95 14 138/67 94 Room Air 09/09 2221 100.8 104 12 146/76 94 Room Air 09/09 2020 Room Air 09/09 1748 100.2 106 20 147/84 Nasal 2.0 Cannula I&O 09/09 0800 09/09 1600 09/10 0000 Intake Total 0 Output Total 225 Balance -225 General Appearance Oriented X3, Cooperative, No acute distress, uncomfortable HEENT EOMI Lungs Clear to auscultation Neck Supple Cardiovascular Normal S1 and S2 Abdomen No guarding, No rebound, protuberant, hyperactive bowel sounds Extremities No clubbing, No edema Neurological Cranial nerves intact Psych/Mental Status Mood normal LAB Results Laboratory Tests 09/09 09/09 09/09 09/09 09/09 1500 1500 1500 1500 1550 Chemistry Plasma Sodium (136 - 145 mmol/L) 138 Plasma Potassium (3.5 - 5.1 mmol/L) 3.3 Plasma Chloride (98 - 107 mmol/L) 100 CO2 (Enzymatic) (21 - 32 mmol/L) 24 BUN (7 - 18 mg/dL) 19 Creatinine (0.6 - 1.3 mg/dL) 1.4 Est GFR ( Amer) (mL/min) >60 Est GFR (Non-Af Amer) (mL/min) 58.51 Glucose (70 - 110 mg/dL) 126 Hemoglobin A1c % (4.5 - 6.2 %) 5.9 Lactic Acid (0.4 - 2.0 mmol/L) 1.8 Plasma Calcium (8.5 - 10.1 mg/dL) 8.2 Plasma Magnesium (1.8 - 2.4 mg/dL) 1.8 Total Bilirubin (0.0 - 1.0 mg/dL) 0.5 AST (15 - 37 U/L) 57 ALT (12 - 78 U/L) 121 Alkaline Phosphatase (46 - 116 U/L) 83 Creatine Kinase (24 - 260 U/L) 126 Troponin (0.00 - 1.5 ng/mL) <0.05 B-Natriuretic Peptide (5 - 100 pg/ml) < 5.0 Total Protein (6.4 - 8.2 g/dL) 7.9 Albumin (3.3 - 5.0 g/dL) 3.8 Amylase (25 - 115 U/L) 62 Lipase (73 - 393 U/L) 189 Coagulation INR (0.8 - 1.2) 1.0 Hematology WBC (4.5 - 11.5 K/uL) 17.4 RBC (4.50 - 5.90 M/uL) 4.93 Hgb (13.5 - 17.5 gm/dL) 14.8 Hct (41.0 - 53.0 %) 43.4 MCV (80 - 100 fL) 88 MCH (26 - 34 pg) 30 RDW (11.6 - 14.8 %) 13.2 Neut % (Auto) (50 - 75 %) 67 Lymph % (Auto) (25 - 40 %) 4 [place] % (Auto) (3 - 14 %) 1 Eos % (Auto) (0 - 4 %) 0 Baso % (Auto) (0 - 2 %) 0 Band Neutrophils % (0 - 8 %) 28 Metamyelocytes % (0 - 1 %) 0 Myelocytes (0 - 1 %) 0 Other Cell Type 0 Plt Count, EDTA (150 - 400 K/uL) 311 RBC Morphology (47263 A) PLTS ADQ PUBS MCHC (31 - 37 g/dL) 34 09/09 09/09 09/09 1550 1550 1630 Chemistry Procalcitonin (0 - 0.5 ng/mL) Cancelled 0.8 Other Body Source Stool Occult Blood Pending Stl Occult Blood (ICT) (NEGATIVE) POSITIVE Occult Blood (ICT) #2 (NEGATIVE) Pending Occult Blood (ICT) #3 (NEGATIVE) Pending 09/09 09/10 1640 0520 Chemistry Plasma Sodium (136 - 145 mmol/L) 138 Plasma Potassium (3.5 - 5.1 mmol/L) 3.2 Plasma Chloride (98 - 107 mmol/L) 102 CO2 (Enzymatic) (21 - 32 mmol/L) 22 BUN (7 - 18 mg/dL) 15 Creatinine (0.6 - 1.3 mg/dL) 1.3 Est GFR ( Amer) (mL/min) >60 Est GFR (Non-Af Amer) (mL/min) >60 Glucose (70 - 110 mg/dL) 109 Plasma Calcium (8.5 - 10.1 mg/dL) 7.7 Total Bilirubin (0.0 - 1.0 mg/dL) 0.4 AST (15 - 37 U/L) 160 ALT (12 - 78 U/L) 269 Alkaline Phosphatase (46 - 116 U/L) 66 Total Protein (6.4 - 8.2 g/dL) 6.8 Albumin (3.3 - 5.0 g/dL) 3.2 Hematology WBC (4.5 - 11.5 K/uL) 10.4 RBC (4.50 - 5.90 M/uL) 4.55 Hgb (13.5 - 17.5 gm/dL) 13.4 Hct (41.0 - 53.0 %) 40.6 MCV (80 - 100 fL) 89 MCH (26 - 34 pg) 30 RDW (11.6 - 14.8 %) 13.4 Neut % (Auto) (50 - 75 %) 80.5 Lymph % (Auto) (25 - 40 %) 10.4 [place] % (Auto) (3 - 14 %) 9.0 Eos % (Auto) (0 - 4 %) 0.1 Baso % (Auto) (0 - 2 %) 0 Plt Count, EDTA (150 - 400 K/uL) 288 PUBS MCHC (31 - 37 g/dL) 33 Toxicology Urine Opiates Screen (NEGATIVE) POSITIVE Urine Methadone Screen (NEGATIVE) NEGATIVE Ur Barbiturates Screen (NEGATIVE) NEGATIVE U Amphetamin/Meth Scrn (NEGATIVE) NEGATIVE MDMA (Ecstasy) Screen (NEGATIVE) NEGATIVE U Benzodiazepines Scrn (NEGATIVE) NEGATIVE Urine Cocaine Screen (NEGATIVE) NEGATIVE U Cannabinoids Screen (NEGATIVE) NEGATIVE Urines Urine Color YELLOW Urine Appearance CLEAR Urine pH (5.0 - 8.0) 5.0 Ur Specific [place] (1.010 - 1.030) <= 1.005 Urine Protein (NEGATIVE) NEGATIVE Urine Ketones (NEGATIVE) NEGATIVE Urine Blood (NEGATIVE) NEGATIVE Urine Nitrite (NEGATIVE) NEGATIVE Urine Bilirubin (NEGATIVE) NEGATIVE Urine Urobilinogen (0.2 - 1.0 EU/dL) 0.2 Ur Leukocyte Esterase (NEGATIVE) NEGATIVE Urine RBC (0 - 1 rbc/hpf) NONE SEEN Urine WBC (0 - 1 wbc/hpf) NONE SEEN Ur Epithelial Cells (0 - 5 EPI/hpf) NONE SEEN Urine Bacteria (NONE SEEN) NONE SEEN Urine Glucose (NEGATIVE) NEGATIVE Urine Comment CULT NOT INDICATED Microbiology Date/Time Procedure - Status Source Growth 09/09 1640 Escherichia coli Shiga Toxins EIA - RECD STOOL 09/09 1640 Campylobacter Culture - RECD STOOL 09/09 1640 Salmonella/Shigella Culture - RECD STOOL 09/09 1630 Stool Leukocytes - COMP STOOL 09/09 1520 Blood Culture - RECD BLOOD 09/09 1500 Blood Culture - RECD BLOOD Assessment and Plan Problem List 1. Gastroenteritis Status Acute Onset Date Unknown Plan Unknown etiology for the gastroenteritis. The patient has had no food source or contact for infectious agent. She does have an elevated liver enzyme. Also, on image, there appears to be fatty changes on the liver. Consider ultrasound study of the liver. May need to follow this over time. Agents that can cause elevated liver enzymes along with the gastroenteritis would be a CMV type virus. But there is a source of blood in the stool. Probably unlikely that it's CMV. Awaiting cultures at this time. Maintain good hydration. 2. Hypokalemia Status Acute Onset Date Unknown Plan Testing was replaced. Recheck in the morning 3. Dehydration Status Acute Onset Date Unknown Plan Normal Mirena dehydration with this patient due to the diarrhea and poor by mouth. He was given fluids, IV to replace lost fluid and then maintained. 4. Hyperglycemia Status Acute Onset Date Unknown Plan [facility] should be aware of that. Hyperglycemia in the hospital bed. Patient should be on caution for diabetes. Patient does have an appropriate workout program. Dietary factors maybe employed to improve on sugar metabolism 5. Hypertension Status Chronic Onset Date Unknown Plan The [facility] pharmacy is being contacted for recommendations on by mouth antihypertensives. 6. Abdominal pain Plan Diffuse abdominal pain which is consistent with a gastroenteritis. We'll plan to follow cultures, lightly hydrate patient and improve on nutritional standard. Introduce a clear liquids today. We'll likely advance the diet tomorrow. Consider discharging him tomorrow. 7. Elevated liver function tests Status Acute Onset Date Unknown Plan Elevated liver enzymes in the setting of gastroenteritis. Considering likely causation for fatty liver. May decide to order liver panel in the future. Also need to have a liver ultrasound performed. Current status: Fair, unstable Anticipated discharge date: Anticipated discharge in 2 days Anticipated discharge placement: Home Patient care time: Time spent in chart review, patient interview, physical exam, CPOE, and care documentation: 70 minutes Visit to patient today: 1 Complexity of care: High Initial patient evaluation: Emergency department DVT prophylaxis: Lovenox 40 mg subcutaneous daily GI prophylaxis: Protonix 40 mg IV daily E&M Codes Rounding: Obsv-Comp/High/[id number]
[2016-09-10 10:56] VITALS: BP 152/68
[2016-09-10 14:17] VITALS: BP 134/86
--- NOTE | 2016-09-10 17:07 | Provider's Discharge Care Plan ---
Problem, Goal, Plan Problem List 1. Gastroenteritis Goals: Improved health/wellness, Learn about illness Instructions: Follow up as directed, Take meds as directed, Avoid processed foods, sent home on on cefuroxime 500 mg tabs taken twice a day for 7 days. 2. Hypokalemia Goals: Improve disease control, Therapeutic intervention Instructions: Follow up as directed, Avoid processed foods 3. Dehydration Goals: Improve disease control, Prevent disease progress Instructions: Follow up as needed, Take meds as directed 4. Hyperglycemia Goals: Improve disease control, Prevent disease progress, Therapeutic intervention Instructions: Follow up as needed, Follow up as directed 5. Elevated liver function tests Goals: Therapeutic intervention, primary care to review Recommendations on liver Ultrasound study. Instructions: Follow up as directed, liver ultrasound study 6. Abdominal pain Goals: Improve disease control, Therapeutic intervention Instructions: Follow up as directed 7. Hypertension Goals: Improve disease control, Improve nutrition status, Learn about illness , salt reduce diet Instructions: Follow up as directed, Avoid processed foods
[2016-09-10] MEDS ORDERED: CEFTIN500 MG PO ×2 (17:09)
== END 2016-09-10 17:45 | disposition home or self-care (01) ==
LOC: ED SRH 14:40 → TRANS SRH 16:48 → ACUTE2 SRH 17:59
PROVIDERS: ADMIT Internal Medicine
DX: K52.9 Noninfective gastroenteritis and colitis, unspecified (principal); E86.0 Dehydration; E87.6 Hypokalemia; R73.9 Hyperglycemia, unspecified; R74.8 Abnormal levels of other serum enzymes; I10 Essential (primary) hypertension
CPT/HCPCS: 29230; 29250; 29251; 29264; 90004; 90065; 90074; 90098; 90100; 90455; 90616; 91286; 91320; 91643; 92031; 92235; 92530; 92610; 92720; 92755; 92760; 92761; 92762; 92763; 92764; 92765; 92766; 92767; 93004; 94060; 95059; 99262

== ENCOUNTER 2016-09-12 15:38 | Outpatient (CLI) | payer OTHER ==
[~2016-09-12 15:38] MED LIST: CEFTIN500 MG PO
--- NOTE | 2016-09-12 16:48 | DIAGNOSTIC IMAGING REPORT ---
PROCEDURE: US ABDOMEN ULTRASOUND-COMPLETE INDICATION: ABDOMINAL PAIN TECHNIQUE: Bernard scale and color Doppler sonographic images of the abdomen were obtained without comparison. COMPARISON: CT abdomen and pelvis 09/09/2016 FINDINGS: The liver demonstrates increased echogenicity. No mass or intrahepatic biliary dilatation. The gallbladder is normal without stones or sludge. The wall is normal thickness measuring 2 mm No pericholecystic fluid or Villaseñor sign. The extrahepatic common duct is normal measuring 4 mm The pancreas is not well seen. The abdominal aorta is normal in its course and caliber. The retrohepatic inferior vena cava is patent. There is appropriate hepatopetal flow in the portal vein. The right kidney measures 14.1 cm in length. The left kidney measures 12.9 cm in length. There is an echogenic focus in the mid pole of the right kidney that may represent a 10 mm stone. Color Doppler imaging demonstrates normal blood flow in each kidney. The spleen is normal in size measuring 13.4 cm in length. There is no perihepatic or perisplenic ascites. IMPRESSION: 1. Fatty liver. 2. Possible stone right renal pelvis.
== END 2016-09-12 23:00 | disposition home or self-care (01) ==
LOC: US SRH 15:38
DX: R10.9 Unspecified abdominal pain (principal); K76.0 Fatty (change of) liver, not elsewhere classified